=== PATIENT | female | born 1985 | race Caucasian/White ===

== ENCOUNTER 2016-05-25 14:40 | Emergency (ER) | payer SELFPAY ==
[2016-05-25] MEDS ORDERED: ACETAMINOPHEN 500 MG TABLET ONE (15:27)
[2016-05-25] MEDS ORDERED: DEXAMETHASONE SOD PHOS 10 MG/1 ML VIAL ONE (15:27)
[2016-05-25] MEDS ORDERED: PENICILLIN G BENZATHINE 1.2 MMU/2 ML SYRINGE IM ONE (15:27)
== END 2016-05-25 15:49 | disposition home or self-care (01) ==
LOC: ED 14:40
DX: J02.9 Acute pharyngitis, unspecified (principal)
CPT/HCPCS: 99283 ×2; 96372; J1100; A9270; J0561